=== PATIENT | male | born 2000 | race Caucasian/White ===

== ENCOUNTER 2022-07-17 12:28 | Outpatient (CLI) | payer OTHER, SELFPAY ==
--- NOTE | ~2022-07-17 | MR_ITS ---
EXAMINATION: MR cervical spine wo/w con DATE: 07/17/2022 14:21 INDICATION: Multiple sclerosis. TECHNIQUE: Magnetic resonance imaging (MRI) of the cervical spine was performed without and with 19 m L MultiHance intravenous contrast. COMPARISON: None FINDINGS: There is 3 degrees dextrocurvature of cervical spine. Vertebral body heights and interverte bral disc heights are normal. The spinal cord signal intensity is normal. The following disc levels a re specifically discussed: C2-C3 through C7-T1: The disc does not extend beyond the endplate margin. There is no uncovertebral j oint osteoarthritis. There is no facet joint osteoarthritis. There is no neural foraminal stenosis. T here is no central canal stenosis. IMPRESSION: 1. Normal spinal cord. Reviewed, dictated and finalized at location A. IMPRESSION: 1. Normal spinal cord.
--- NOTE | ~2022-07-17 | MR_ITS ---
EXAMINATION: MR brain/brain stem wo/w con DATE: 07/17/2022 14:21 INDICATION: Multiple sclerosis. TECHNIQUE: Magnetic resonance imaging (MRI) of the brain and brainstem was performed without and with 19 mL MultiHance intravenous contrast. COMPARISON: None. FINDINGS: There is no intracranial hemorrhage, acute infarction, or abnormal intracranial mass lesion . The ventricles are normal in size. The orbits are normal. The mastoid air cells are normal. There i s mild mucosal thickening in the ethmoid sinuses. IMPRESSION: 1. Normal brain. Reviewed, dictated and finalized at location A. IMPRESSION: 1. Normal brain.
--- NOTE | ~2022-07-17 | MR_ITS ---
EXAMINATION: MR thoracic spine wo/w con DATE: 07/17/2022 14:21 INDICATION: Multiple sclerosis. TECHNIQUE: Magnetic resonance imaging (MRI) of the thoracic spine was performed without and with 19 m L MultiHance intravenous contrast. COMPARISON: None FINDINGS: Bone alignment is normal. There is mild chronic anterior wedging of T5 and T6 vertebral bod ies. Intervertebral disc heights are normal. The discs do not extend beyond the endplate margins. The facet joints are normal. Epidural lipomatosis is noted. 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 Scattered areas of increased signal in the spinal cord are likely secon andres to motion artifact. IMPRESSION: 1. 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 Motion artifact decreases sensiti vity and specificity for other spinal cord abnormalities. Reviewed, dictated and finalized at location A. IMPRESSION: 1. 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 Motion connie fact decreases sensitivity and specificity for other spinal cord abnormalities.
== END 2022-07-17 12:29 | disposition home or self-care (01) ==
LOC: ANHIMG 12:37
PROVIDERS: Visit Provider Psychiatry & Neurology Neurology
DX: G35 Multiple sclerosis (principal)
CPT/HCPCS: 70553; 72156; 72157; A9577

== ENCOUNTER 2023-09-17 08:58 | Outpatient (CLI) | payer OTHER, SELFPAY ==
--- NOTE | ~2023-09-17 | MR_ITS ---
MRI of the cervical spine Clinical History: Possible sclerosis Technique: Axial T2-weighted and gradient images, and sagittal T1-weighted, T2-weighted, and STIR fernando ges were acquired. Following intravenous administration of 19 cc MultiHance gadolinium, T1-weighted f at-sat imaging was performed in the axial and sagittal planes. COMPARISON: 07/17/2022 Findings: There is no fracture or subluxation of the cervical spine. Vertebral bodies maintain normal height and line. No bone marrow signal reality seen. No disc bulge or herniation seen at any cervical level. Intervertebral discs maintain normal signal a nd position. No spinal canal stenosis, cord compression, or neural foraminal narrowing evident in the cervical spine. No abnormal signal seen in the spinal cord. Paravertebral soft tissues are unremarkable. No abnormal postcontrast enhancement identified. IMPRESSION: Unremarkable exam. Reviewed, dictated and finalized at [facility]. IQUE CUTTER IMPRESSION: Unremarkable exam.
--- NOTE | ~2023-09-17 | MR_ITS ---
MRI of the brain Clinical History: Multiple sclerosis Technique: Axial and sagittal T1-weighted images were acquired. These were followed by axial T2-weigh marcela, diffusion weighted, gradient, and FLAIR images. Following intravenous administration of 19 cc Mu ltiHance gadolinium, T1-weighted fat-sat imaging was performed in the axial, coronal, and sagittal pl anes. COMPARISON: 07/17/2022 Findings: There is no abnormal signal in the brain parenchyma. No acute infarct, intracranial hemorrh age, or mass lesion. No white matter disease evident. Ventricles and subarachnoid spaces are unremarkable. Orbits are unremarkable. Paranasal sinuses and m astoid air cells are clear. Major intracranial flow voids appear intact. Sagittal midline structures are intact. No abnormal postcontrast enhancement identified. IMPRESSION: Unremarkable exam. Reviewed, dictated and finalized at location . ROOM ATTENDANT IMPRESSION: Unremarkable exam.
--- NOTE | ~2023-09-17 | MR_ITS ---
MRI of the thoracic spine Clinical History: Multiple sclerosis Technique: Axial T2-weighted and gradient images, and sagittal T1-weighted, T2-weighted, and STIR fernando ges were acquired. Following intravenous administration of 19 cc MultiHance gadolinium, T1-weighted f at-sat imaging was performed in the axial and sagittal planes. COMPARISON: 07/17/2022 Findings: There is no fracture or subluxation of the thoracic spine. Vertebral bodies maintain normal height and alignment. No bone marrow signal reality seen. No disc bulge or herniation seen at any thoracic level. No spinal canal stenosis or cord compression identified. There is mildly prominent epidural fat throughout the thoracic spinal canal but no yolanda compression evident. No abnormal signal evident in the spinal cord parenchyma. Stable minimal prominence of the central ca nal the spinal cord from T6 to T10. No abnormal postcontrast enhancement identified. Paravertebral soft tissues are otherwise unremarkable. Impression: Stable minimal prominence of the central canal of the spinal cord from T6-T10. No parenchymal lesion of the spinal cord evident. Mildly prominent epidural fat diffusely throughout the spinal canal, without yolanda compression. Reviewed, dictated and finalized at [facility]. ER CHECKER Impression: Stable minimal prominence of the central canal of the spinal cord from T6-T10. No parenchymal lesion of the spinal cord evident. Mildly prominent epidural fat diffusely throughout the spinal canal, without fr ank compression.
== END 2023-09-17 08:59 | disposition home or self-care (01) ==
LOC: ANHIMG 08:59
PROVIDERS: Visit Provider Student in an Organized Health Care Education/Training Program
DX: G35 Multiple sclerosis (principal)
CPT/HCPCS: 70553; 72156; 72157; A9577